=== PATIENT | male | born 2005 | race Caucasian/White ===

== ENCOUNTER 2025-02-07 20:09 | Emergency (ER) | payer OTHER ==
[2025-02-07] MEDS ORDERED: Acetaminophen 325 MG TAB ONE (20:28)
[2025-02-07] MEDS ORDERED: Ibuprofen 200 MG TAB ONE (20:28)
== END 2025-02-07 22:10 | disposition home or self-care (01) ==
LOC: CSHERS 20:09
DX: S89.91XA Unspecified injury of right lower leg, initial encounter (principal); X50.1XXA Overexertion from prolonged static or awkward postures, initial encounter
CPT/HCPCS: 99283